=== PATIENT | female | born 1940 | race Caucasian/White ===

== ENCOUNTER 2019-01-19 06:39 | Emergency (ER) | payer MEDICARE, OTHER ==
[~2019-01-19] VITALS: Ht 170.2 cm; Wt 106.6 kg
[~2019-01-19 06:39] MED LIST: CELE100 PO; CYCL10 PO; DIAZ5 PO; DOC250 PO; IBUP400 PO; LISHYD2012 PO; NITR100 PO; OXYACE5T PO
[2019-01-19] MEDS ORDERED: Coumadin2 MG (07:27)
[2019-01-19 08:08] LABS: BASOPHILS ABSOLUTE AUTO 0.03 K/mm3 (0.00-0.23); BASOPHILS PERCENT AUTO 0 % (0-2); EOSINOPHILS ABSOLUTE AUTO 0.29 K/mm3 (0.00-0.68); EOSINOPHILS PERCENT AUTO 3 % (0-6); Hematocrit 40.7 % (33.0-51.0); IMMATURE GRAN ABSOLUTE AUTO 0.02 K/mm3 (0.00-0.10); IMMATURE GRAN PERCENT AUTO 0 % (0-1); LYMPHOCYTES ABSOLUTE AUTO 1.97 K/mm3 (0.84-5.20); LYMPHOCYTES PERCENT AUTO 22 % (21-46); MONOCYTES ABSOLUTE AUTO 0.85 K/mm3 (0.16-1.47); MONOCYTES PERCENT AUTO 9 % (4-13); Mean Corpuscular HGB Conc 31.9 g/dL (31.5-36.5); Mean Corpuscular Volume 94 fL (80-100); NEUTROPHILS ABSOLUTE AUTO 5.85 K/mm3 (1.96-9.15); NEUTROPHILS PERCENT AUTO 65 % (41-73); Platelet Count 181 K/mm3 (150-400); RDW Standard Deviation 52.3 fL (35.1-46.3); Red Blood Cell Count 4.34 M/mm3 (3.80-5.20); White Blood Cell Count 9.01 K/mm3 (4.00-11.30)
[2019-01-19 08:23] LABS: International Normalized Ratio 1.97; Prothrombin Time Results 19.6 Sec (9.7-11.5)
[2019-01-19 08:32] LABS: Anion Gap 6 mmol/L (6-16); Blood Urea Nitrogen 27 mg/dL (8-24); Bun/Creatinine Ratio 30.9 (12.0-20.0); CO2, Blood 28 mmol/L (21-32); Calcium, Blood 9.1 mg/dL (8.5-10.1); Chloride, Blood 107 mmol/L (98-108); Creatinine, Blood 0.88 mg/dL (0.40-1.00); Glomerular Filtration Rate >60 (60-); Glucose, Blood 120 mg/dL (70-99); Potassium, Blood 3.4 mmol/L (3.5-5.5); Sodium, Blood 141 mmol/L (136-145)
[2019-01-19] MEDS ORDERED: Ultram50 MG PO (10:03)
== END 2019-01-19 11:32 | disposition home or self-care (01) ==
LOC: ER 06:39
PROVIDERS: Emergency Medicine
DX: S00.03XA Contusion of scalp, initial encounter (principal); S40.022A Contusion of left upper arm, initial encounter; S40.011A Contusion of right shoulder, initial encounter; Z88.0 Allergy status to penicillin; Z88.8 Allergy status to other drugs, medicaments and biological substances; Z79.01 Long term (current) use of anticoagulants; Z79.1 Long term (current) use of non-steroidal anti-inflammatories (NSAID); W01.198A Fall on same level from slipping, tripping and stumbling with subsequent striking against other object, initial encounter
CPT/HCPCS: 36415; 70450; 73030; 80048; 85025; 85610; 99285-25

== ENCOUNTER 2022-03-10 15:20 | Inpatient (IN) | payer MEDICARE, OTHER ==
[~2022-03-10] VITALS: Ht 160 cm; Wt 57.6 kg
[~2022-03-10 15:20] MED LIST changes: +Coumadin2 MG; +NITR100CA PO; +Ultram50 MG PO
[2022-03-10 16:36] LABS: BASOPHILS ABSOLUTE AUTO 0.01 K/mm3 (0.00-0.23); BASOPHILS PERCENT AUTO 0 % (0-2); EOSINOPHILS ABSOLUTE AUTO 0.07 K/mm3 (0.00-0.68); EOSINOPHILS PERCENT AUTO 1 % (0-6); Hematocrit 42.4 % (33.0-51.0); Hemoglobin 13.6 g/dL (11.5-16.0); IMMATURE GRAN ABSOLUTE AUTO 0.09 K/mm3 (0.00-0.10); IMMATURE GRAN PERCENT AUTO 1 % (0-1); LYMPHOCYTES ABSOLUTE AUTO 1.47 K/mm3 (0.84-5.20); LYMPHOCYTES PERCENT AUTO 10 % (21-46); MONOCYTES ABSOLUTE AUTO 0.47 K/mm3 (0.16-1.47); MONOCYTES PERCENT AUTO 3 % (4-13); Mean Corpuscular HGB 28.5 pg (26.0-34.0); Mean Corpuscular HGB Conc 32.1 g/dL (31.5-36.5); Mean Corpuscular Volume 89 fL (80-100); Mean Platelet Volume 9.9 fL (9.1-12.4); NEUTROPHILS ABSOLUTE AUTO 12.75 K/mm3 (1.96-9.15); NEUTROPHILS PERCENT AUTO 86 % (41-73); Platelet Count 182 K/mm3 (150-400); RDW Coefficient Variation 17.6 % (11.7-14.2); RDW Standard Deviation 57.6 fL (35.1-46.3); Red Blood Cell Count 4.77 M/mm3 (3.80-5.20); White Blood Cell Count 14.86 K/mm3 (4.00-11.30)
[2022-03-10 16:48] LABS: International Normalized Ratio 0.98; Prothrombin Time Results 10.3 Sec (9.7-11.5)
[2022-03-10 17:09] LABS: Influenza A, PCR NEGATIVE (NEGATIVE); Influenza B, PCR NEGATIVE (NEGATIVE); Resp Syncytial Virus, PCR NEGATIVE (NEGATIVE); SARS-Cov-2 (COVID-19) PCR, MMC NEGATIVE (NEGATIVE)
[2022-03-10 17:15] LABS: Albumin, Blood 2.7 g/dL (3.4-5.0); Albumin/Globulin Ratio 0.6 (0.8-1.8); Bilirubin, Total 0.4 mg/dL (0.1-1.0); Bun/Creatinine Ratio 89.9 (12.0-20.0); Creatinine, Blood 2.27 mg/dL (0.40-1.00); Globulin, Blood 4.6 g/dL (2.2-4.0); Potassium, Blood 5.9 mmol/L (3.5-5.5); Total Protein, Blood 7.3 g/dL (6.4-8.2)
[2022-03-10 17:37] LABS: Source, Urine Foley catheter
[2022-03-10 17:39] LABS: Creatine Kinase MB 43.1 ng/mL (0.0-3.6); Creatine Kinase MB Index 3.6 (0.0-4.0)
[2022-03-10 17:46] LABS: Appearance, Urine Cloudy (Clear); Bilirubin, Urine Neg (Neg); Blood, Urine 5+ (Neg); Color, Urine Yellow (P-Yellow); Glucose Qualitative, Urine Neg (Neg); Ketones, Urine Neg (Neg); Leukocyte Esterase, Urine 3+ (Neg); Nitrite, Urine Neg (Neg); Protein, Urine 3+ (Neg); Urobilinogen, Urine NORM (Normal)
[2022-03-10 18:06] LABS: Bacteria Many /hpf; Squamous Epithelial Cells Rare /hpf (Few); White Blood Cells, Urine 50-100 /hpf (0-5)
[2022-03-10 18:07] LABS: Transitional Epithelial Cells Few /hpf (0-Rare)
[2022-03-10 18:41] LABS: Bicarbonate Venous 16.3 mmol/L (24.0-30.0); PCO2 Venous 26.8 mmHg (38-42); pH Blood Venous 7.33 (7.34-7.37)
--- NOTE | 2022-03-10 22:30 | NUR ---
PT ADMITTED TO ROOM ICU 3 UNDER ICU STATUS. PT ARRIVES TO ROOM AT 2155 FROM ED. SLIDE TRANSFERRED TO BED FROM [facility]. PT MOANS OUT WITH ANY CONTACT AND DOES CRY WHEN MOVED. NOTED MULTIPLE SKIN WOUNDS THROUGHOUT PT'S BODY. WOUND PICTURES TAKEN. MEPILEX DRESSING "CLOVER" PLACED TO GLUTEAL WOUND. MULTIPLE PILLOWS UTILIZED TO PROTECT PT'S SKIN INTEGRITY. LEVOPHED INFUSING AT 3MCG'S TO MAINTAIN MAP > 60. WILL REVIEW CHART, ORDERS, AND PLAN OF CARE FOR THIS PT.
[2022-03-11 00:30] LABS: Bun/Creatinine Ratio 97.1 (12.0-20.0); Calcium, Blood 9.4 mg/dL (8.5-10.1); Creatinine, Blood 1.71 mg/dL (0.40-1.00); Potassium, Blood 4.4 mmol/L (3.5-5.5)
[2022-03-11] MEDS ORDERED: HYDCHL50 PO (03:20)
[2022-03-11] MEDS ORDERED: KLOR-CON 1010 ME8 PO (03:21)
[2022-03-11] MEDS ORDERED: Prinivil10 MG PO (03:22)
[2022-03-11 04:56] LABS: BASOPHILS ABSOLUTE AUTO 0.01 K/mm3 (0.00-0.23); BASOPHILS PERCENT AUTO 0 % (0-2); EOSINOPHILS ABSOLUTE AUTO 0.05 K/mm3 (0.00-0.68); EOSINOPHILS PERCENT AUTO 0 % (0-6); Hematocrit 33.7 % (33.0-51.0); Hemoglobin 10.8 g/dL (11.5-16.0); IMMATURE GRAN ABSOLUTE AUTO 0.06 K/mm3 (0.00-0.10); IMMATURE GRAN PERCENT AUTO 0 % (0-1); LYMPHOCYTES ABSOLUTE AUTO 0.71 K/mm3 (0.84-5.20); LYMPHOCYTES PERCENT AUTO 5 % (21-46); MONOCYTES ABSOLUTE AUTO 0.62 K/mm3 (0.16-1.47); MONOCYTES PERCENT AUTO 5 % (4-13); Mean Corpuscular HGB 28.7 pg (26.0-34.0); Mean Corpuscular Volume 90 fL (80-100); Mean Platelet Volume 9.7 fL (9.1-12.4); NEUTROPHILS ABSOLUTE AUTO 12.25 K/mm3 (1.96-9.15); NEUTROPHILS PERCENT AUTO 89 % (41-73); Platelet Count 145 K/mm3 (150-400); RDW Coefficient Variation 17.5 % (11.7-14.2); RDW Standard Deviation 57.5 fL (35.1-46.3); Red Blood Cell Count 3.76 M/mm3 (3.80-5.20)
[2022-03-11 05:21] LABS: Albumin/Globulin Ratio 0.6 (0.8-1.8); Bilirubin, Total 0.4 mg/dL (0.1-1.0); Bun/Creatinine Ratio 107.2 (12.0-20.0); Calcium, Blood 9.4 mg/dL (8.5-10.1); Creatinine, Blood 1.53 mg/dL (0.40-1.00); Globulin, Blood 3.5 g/dL (2.2-4.0); Potassium, Blood 4.3 mmol/L (3.5-5.5); Total Protein, Blood 5.5 g/dL (6.4-8.2)
--- NOTE | 2022-03-11 06:06 | NUR ---
PT'S SON COMES TO UNIT THIS MORING. STATES THAT HE HAD BEEN RELEASED FROM BEING A PATIENT FROM THIS HOSPITAL ON 03-10-2022. STATES THAT WHEN HE HAD GOT HOME, HE FOUND HIS MOTHER WITH FECAL AND URINE INCONTINENCE. HAD A SPIKE MACHINE OPERATOR THAT HE KNEW COME BY TO HELP CLEAN HER UP, AND THEN CALLED AMBULANCE TO BRING PT INTO HOSPITAL. PT'S SON STATED THAT HE HAD REQUESTED A FRIEND OF HIS TO HELP TAKE CARE OF HIS MOTHER WHILE HE WAS IN THE HOSPITAL. HE ADMITS THAT HIS FRIEND HAD NOT DONE A GOOD JOB, AND THAT HE DID NOT KNOW HOW TO CARE FOR THE PATIENT. UPDATE GIVE TO THE SON, RADHA ON PLAN OF CARE FOR PT. HE VERBALIZES UNDERSTANDING. HE HAS GONE HOME FOR THE MORNING. PT HAS REMAINED NON-VERBAL THROUGHT NIGHT. DOES OPEN EYES TO HER NAME, AND MOANS OUT WITH TURNS. LEVOPHED HAD BEEN DECREASED TO 2MCG'S, AND SUBSEQUENTLY INCREASED BACK TO 3MCG'S. WILL CONTINUE TO MONITOR PT, AND WILL REPORT OFF TO ONCOMING RN.
--- NOTE | 2022-03-11 06:50 | NUR ---
MEPILEX DRESSINGS PLACE TO WOUNDS. ABD PAD PLACED TO RIGHT AXILLA AREA TO PROTECT ESCORIATED SKIN. HEEL PROTECTORS PLACED BI LAT. PT DOES AWAKEN AND MAKE EYE CONTACT. PT DOES SPEAK SOME. IS ABLE TO STATE SHE PREFERS TO BE CALLED JONI.
--- NOTE | 2022-03-11 08:20 | NUR ---
ASSUMED CARE OF PT, REPORT RCV'D FROM VERONICA MARTIN. PT ALERT TO VERBAL STIMULATION, OPENS EYES, WITHDRAWN BUT NODS HEAD YES/NO, FOLLOWS COMMANDS WEAKLY. LEVOPHED INFUSING AT 3 MCG/MIN AT START OF SHIFT TITRATED DOWN AND PLACED ON STANDBY AT 0745, MAPS REMAIN >65 AT THIS TIME. AFIB WITH RATE 100-120. SATS 97% ON ROOM AIR. 1/2NS BICARB @75 ML/HR. GARCIA PATENT AND DRAINING CLOUDY URINE TO GRAVITY. PT HAS EXTENSIVE WOUNDS (DOCUMENTED IN CHART), WOUND CLEANSED AND COVERED BY NOC NURSE. SEE FULL SHIFT ASSESSMENT.
--- NOTE | 2022-03-11 09:12 | NUR ---
PT AWAKE AND TEARFUL, ASKED PT IF SHE WAS IN PAIN, SHE RESPONDED "A LITTLE". TREATED PER EMAR. PT CRIES OUT IN PAIN WITH REPOSITIONING.
--- NOTE | 2022-03-11 09:38 | NUR ---
ADULT PROTECTIVE SERVICES AT BEDSIDE. PT IS SLEEPY AND ISN'T ANSWERING QUESTIONS AT THIS TIME. APS WORKER REQUESTING COPIES OF PT'S WOUNDS, SPOKE WITH RISK MANAGEMENT WHO WILL BE SAFELY AND SECURELY PROVIDING PT'S INFORMATION TO APS. REVIEWED PTS CASE WITH PROTECTIVE SERVICES AND CASE MANAGEMENT.
--- NOTE | 2022-03-11 11:27 | NUR ---
Attempted to reach pt's son by phone to discuss goals of care, pt's extreme pain and s/s, and code status. Phone number listed for Jose Madrid is disconnected. Attempting to find valid contact # for Jose. T/C to CM to assist if possible.
--- NOTE | 2022-03-11 12:05 | NUR ---
Valid ph # obtained for Jose Madrid from his primary contact [phone]. I spoke to him regarding her current condition and prognosis. He is in support of transitioning to comfort care and a supportive/hospice goal of care.
--- NOTE | 2022-03-11 12:41 | NUR ---
PT CRYING AND NODDING HEAD YES TO PAIN, TREATED WITH 50 MCG OF FENTANYL WITH NO RELIEF. PALLIATIVE CARE SPOKE WITH PT'S SON AND PT TRANSITIONED TO COMFORT CARE.
--- NOTE | 2022-03-11 13:44 | NUR ---
[facility] Care referral received last night on admit for urosepsis, AMNA, Rhabdo, wounds, hypotention, severe pain. EMS reportedly found pt in bed soaked in urine and covered with feces. Her son had been in the hospital in the past week, released yesterday and relief cg was not able to care for pt adequately. APS referral made by hospital/EMS and they are in process of investigating situation. I spent am attempting to reach son. Contact made with friend of son who was able to give me son's correct current #. Son, Jose, spoke at length about his own health issues and recent decline in his mom's ability to be independent at home. Due to dementia, Jose has been her CG in the home for safety with cooking, wandering, etc., for some time now. I saw pt a couple of times so far today. Initial visit, pt crying out with any touch, attempt to reposition or check VS. She is is nonverbal but nods yes, when asked if she is hurting. During second visit, after additional analgesic was given, pt was sleeping and did not rouse to voice or gentle touch. Resp even and unlabored. I did not wake her as she has been painful and wakeful most of the time since admission yesterday anabelle. Son will be in later to visit. Report of my conversation with son given to , RN, CM. VO obtained and entered for comfort care at this time.
--- NOTE | 2022-03-11 14:24 | NUR ---
Spiritual Care Visit. Pt is unresponsive and on comfort care. Prayed over Pt. Hoping to connect with Pts. son when he arrives. Will monitor today through nurse [place].
--- NOTE | 2022-03-11 16:11 | NUR ---
PT'S SON RADHA AT BEDSIDE. SON STATES THAT SINCE HIS MOTHERS FALL IN DECEMBER 2021, SHE HAS BEEN UNABLE TO AMBULATE INDEPENDENTLY. SON STATES THAT HE "SUFFERED A BLOOD CLOT AND INFECTION LEADING TO HIS INABILITY TO ASSIST HIS MOTHER AMBULATING". RADHA STATES THAT HE WAS "ADMITTED TO [facility] LAST WEEK AND WAS DISCHARGED 03/10/22". PTS SON STATES THAT HE "MADE ARRANGEMENTS FOR HIS FRIEND TO CARE FOR HIS MOTHER DURING HIS HOSPITALIZATION". RADHA STATES THAT "UPON DISCHARGE HE FOUND THAT HIS MOTHER HAD DETERIORATED OVER THE LAST WEEK AND DEVELOPED EXTENSIVE BEDSORES". SON STATES THAT HE BELIEVES FRIEND "DIDN'T UNDERSTAND THE EXTENT TO WHICH HIS MOTHER NEEDED ASSISTANCE". RADHA CALLED EMS SOON HE REALIZED THAT HIS MOTHER WAS IN SUCH A BAD STATE. RADHA REPORTS THAT HE HAS "TRIED FOR MONTHS" TO FIND ASSISTED LIVING FOR HIS MOTHER TO HELP BETTER MEET HER NEEDS BUT THAT HE HAS "RUN INTO ROADBLOCKS", RADHA SUPPORTS MOTHER'S TRANSITION TO COMFORT CARE AND WHILE APPROPRIATELY SAD, IT GLAD TO SEE MOTHER IS RESTING COMFORTABLY AND DOESN'T APPEAR TO BE IN PAIN. PASTORAL CARE AT BEDSIDE AT THIS TIME COMFORTING PT'S SON RADHA.
--- NOTE | 2022-03-11 16:48 | NUR ---
Spiritual care Visit. Pt. is comfort care and is not responsive. Pts. son is present and is personally unsettled because he himself was recently discharged from the [facility]. Facilitated a lengthy life review of the Pt. Son became appropriately cathartic on several occassions. The Pt. was not a part of a local place of jewish, but was baptized in [facility] by friends. Listened empathetically and guided the son through the life review a with a calming presence. Son verbalized that pt. had identified herself as an organ donor, but there were no other EOL arrangements made. Prayed over the Pt. and with the son. Continued to establish rapport with son. Son verbalized gratitude for the spiritual care visit.
--- NOTE | 2022-03-11 18:04 | NUR ---
PT'S SON REQUESTED PHYSICAL THERAPIST PUSH HIM IN HIS WHEELCHAIR OUT TO HIS CAR TO RETRIEVE HIS PAIN MEDICATIONS WELL REQUESTED THAT THE PHYSICAL THERAPIST CHANGE HIS SURGICAL BANDAGES. PHYSICAL THERAPIST CONSULTED THIS NURSE TO SPEAK WITH PT'S SON. UPON ENTRANCE INTO THE PT'S ROOM, RADHA WAS ON SPEAKERPHONE WITH FRIEND "CELE" MAKING STATEMENTS THAT THE STAFF WANTED HIM TO "SIT THERE AND " AND WANTED HIS "FOOT TO ROT OFF". FRIEND CELE STATED TO RADHA THAT HE WOULD BE HAPPY TO COME AND GIVE RADHA HIS MEDICATION AND ASSIST HIM TO HIS MOTHER'S ROOM SHE WAS BEING TRANSFERRED TO ROOM 338. RADHA THEN STATED "THAT WON'T EVEN HELP BECAUSE I NEED MY DRESSINGS CHANGED". THIS NURSE TOLD RADHA THAT WE WOULD BE HAPPY TO ASSIST HIM TO HIS MOTHERS NEW ROOM AND THAT WE COULD TAKE HIM TO THE EMERGENCY ROOM SO THAT HE COULD CHECK IN AND BE SEEN BY MEDICAL STAFF REGARDING HIS BANDAGES. PT BECAME BELLIGERANT AND YELLING, SECURITY CALLED AND PT WAS ESCORTED OUT OF ICU AND EVENTUALLY OFF OF [facility].
--- NOTE | 2022-03-12 06:08 | NUR ---
NIGHTSHIFT SUMMARY Patient resting comfortably all shift, arouses when repositioning, crying out. Repositioned Q2H, medicated once with Roxinal for pain. PRN effective for comfort. Open wounds noted on coccyx, hip, back, arm. Scant seropurulent drainage noted. Mepilex dressing applied. Patient on comfort care, will continue to monitor and provide interventions for pain control & skin protection as needed.
--- NOTE | 2022-03-12 08:00 | NUR ---
pt laying on her side, mouth breathing with a slight pause between breaths, nonresponsive, no s/s of distress, call light in reach.
--- NOTE | 2022-03-12 10:04 | NUR ---
Comfort care visit. Pt appears MUCH more comfortable than yesterday. She is not requiring freq analgesic dosing to manage symptoms since yesterday anabelle. Resp 6-10/min with pauses. Noisy respirations with pt turned onto right side. No urine output noted in drainage bag. Spoke with RN after my visit. Plan daily visits and will ask Volunteer to visit Zelda later today. No family at bedside. Unsure if son will be allowed back to visit due to behaviours yesterday that required security assistance.
--- NOTE | 2022-03-12 11:49 | NUR ---
pt turned and new bedding placed under her, new mepilex placed to left buttocks/hip area, floated extremities. call light in reach.
--- NOTE | 2022-03-12 16:32 | NUR ---
pt has been turned q2hrs, moans a bit when turned, then returns to sleep, resp are shallow, no changes in condition. call light in reach.
--- NOTE | 2022-03-12 18:03 | NUR ---
SHIFT SUMMARY PT RESTING QUIETLY SINCE THIS RN ASSUMED CARE AT 1700. NO SIGNS OF PAIN/DISCOMFORT OR SHORTNESS OF BREATH AT THIS TIME. CALL LIGHT IN REACH. WILL CONTINUE TO MONITOR FOR COMFORT AND REPORT TO ONCOMING RN.
--- NOTE | 2022-03-12 22:43 | NUR ---
1956 PT LYING IN BED, EYES CLOSED, OCCASIONAL AGONAL BREATHING, OTHERWISE NORMAL BREATHING WITH NO SIGNS OF SOB. NO GRIMACING, GAURDING OR MOANING, NO APPARENT SIGNS OF DISTRESS OTHERWISE. CALL LIGHT IS IN REACH.
--- NOTE | 2022-03-12 22:45 | NUR ---
PT LYING IN BED, EYES CLOSED, BREATHING IS EVEN, NO SOB BUT OCCASIONAL BREATHING CHANGES TO AGONAL BREATHING. ON RA. NO GRIMACING, GUARDING, OR MOANING. NO OTHER APPARENT SIGNS OF DISTRESS. CALL LIGHT IS IN REACH.
--- NOTE | 2022-03-13 02:14 | NUR ---
0000 PT LYING IN BED, EYES CLOSED, APPEARS TO BE RESTING. BREATHING IS EVEN, UNLABORED WITH OCCASIONAL AGONAL BREATHING. NO GRIMACING, GUARDING, OR MOANING. NO OTHER APPARENT SIGNS OF DISTRESS. CALL LIGHT IS IN REACH.
--- NOTE | 2022-03-13 02:15 | NUR ---
0200 PT LYING IN BED, EYES CLOSED, APPEARS TO BE RESTING. BREATHING IS EVEN, UNLABORED WITH OCCASIONAL AGONAL BREATHING. NO GRIMACING, GUARDING OR MOANING. NO OTHER APPARENT SIGNS OF DISTRESS. CALL LIGHT IS IN REACH.
--- NOTE | 2022-03-13 04:59 | NUR ---
TURNED AND REPOSITIONED PT. PT IS LYING IN BED, EYES CLOSED, APPEARS TO BE RESTING. BREATHING IS EVEN, UNLABORED WITH OCCASION AGONAL BREATHING. NO GRIMACING, GAURDING, MOANIN. OTHER APPARENT SIGNS OF DISTRESS. CALL LIGHT IS IN REACH.
--- NOTE | 2022-03-13 05:01 | NUR ---
PT IS UNRESPONSIVE, BREATHING IS MOSTLY EVEN AND UNLABORED WITH OCCASIONAL AGONAL BREATHING. NO GRIMACING, GAURDING OR MOANING. NO SIGNS PT WAS HAVING PAIN OR DISCOMFORT. GARCIA WITH NOW TEA COLORED URINE.
--- NOTE | 2022-03-13 05:24 | NUR ---
PT LYING IN BED, EYES CLOSED, APPEARS TO BE RESTING. BREATHING IS EVEN, UNLABORED WITH OCCASIONAL AGONAL BREATHING. NO GRIMACING, GAURDING OR MOANING. NO OTHER APPARENT SIGNS OF DISTRESS. CALL LIGHT IS IN REACH. NO OTHER CHANGES THIS SHIFT.
--- NOTE | 2022-03-13 11:00 | NUR ---
Pt unresponsive. Resp 8/min and sl labored. Apnic pauses noted as before. No visitors at bedside. Pt appears very comfortable at this time and progressing in the dying process. Plan daily Pal Care visits for s/s management and support.
--- NOTE | 2022-03-13 11:24 | NUR ---
assumed care of pt, she appears comfortable, no s/s of discomfort, nonresponsive, pausing between breathing, cabezas cath draining scant amount of yellow urine, multiple wounds with mepilex in place, continue to turn Q2, and monitor for pain, call light in reach.
--- NOTE | 2022-03-13 12:07 | NUR ---
turned pt to other side, floated with pillows, music playing. no respons from pt when moving. call light in reach.
--- NOTE | 2022-03-13 18:18 | NUR ---
pt has been turned Q2 hrs, pausing between resp, no really responding with turning, floated with pillows, call light in reach.
--- NOTE | 2022-03-14 04:43 | NUR ---
NIGHTSHIFT SUMMARY Patient resting comfortably all shift, uncommunicative. Repostioned Q2H. 0457, patient unresponsive, no pulses noted, no respirations/heartbeat hear on ausculatation, 2x poultry dressing worker. Notified MD that patient .
--- NOTE | 2022-03-14 05:18 | NUR ---
CALLED PT'S SON RADHA LE AT [phone], NO ANSWER. LEFT MESSAGE WITH A PHONE NUMBER TO PLEASE RETURN THE CALL.
== END 2022-03-14 04:57 | DRG 871 ==
LOC: ER 15:20 → MEDS 19:16 → ICUW 19:16 → ICUE 21:36 → MEDS 03-11 18:04
PROVIDERS: Physician Assistant; ADMIT Internal Medicine
PROC: 3E03329 Introduction of Other Anti-infective into Peripheral Vein, Percutaneous Approach (ICD-10-PCS; principal; 2022-03-10)
PROC: 3E033XZ Introduction of Vasopressor into Peripheral Vein, Percutaneous Approach (ICD-10-PCS; 2022-03-10)
PROC: 0T9B70Z Drainage of Bladder with Drainage Device, Via Natural or Artificial Opening (ICD-10-PCS; 2022-03-11)
DX: A41.4 Sepsis due to anaerobes (principal); G92.8 Other toxic encephalopathy; L89.313 Pressure ulcer of right buttock, stage 3; R65.21 Severe sepsis with septic shock; N17.9 Acute kidney failure, unspecified; M62.82 Rhabdomyolysis; N39.0 Urinary tract infection, site not specified; L03.312 Cellulitis of back [any part except buttock and flank]; E87.0 Hyperosmolality and hypernatremia; R64 Cachexia; Z68.1 Body mass index [BMI] 19.9 or less, adult; E87.5 Hyperkalemia; Z51.5 Encounter for palliative care; Z20.822 Contact with and (suspected) exposure to COVID-19; Z66 Do not resuscitate; D69.6 Thrombocytopenia, unspecified; D64.9 Anemia, unspecified; T68.XXXA Hypothermia, initial encounter; M19.90 Unspecified osteoarthritis, unspecified site; F03.90 Unspecified dementia, unspecified severity, without behavioral disturbance, psychotic disturbance, mood disturbance, and anxiety; B96.4 Proteus (mirabilis) (morganii) as the cause of diseases classified elsewhere; L89.629 Pressure ulcer of left heel, unspecified stage; L89.619 Pressure ulcer of right heel, unspecified stage; A41.51 Sepsis due to Escherichia coli [E. coli]; E83.52 Hypercalcemia; E79.0 Hyperuricemia without signs of inflammatory arthritis and tophaceous disease; E86.0 Dehydration; Z87.440 Personal history of urinary (tract) infections; Z98.890 Other specified postprocedural states; Z88.0 Allergy status to penicillin; Z88.8 Allergy status to other drugs, medicaments and biological substances; Z79.01 Long term (current) use of anticoagulants; Z79.899 Other long term (current) drug therapy; X58.XXXA Exposure to other specified factors, initial encounter; Z74.01 Bed confinement status; Z74.2 Need for assistance at home and no other household member able to render care
CPT/HCPCS: 0241U; 36415; 51702; 70450; 71045; 72192; 80048; 80053; 81001; 82550; 82553; 82803; 83605; 83735; 83880; 84100; 84550; 85025; 85610; 87040; 87077; 87086; 87186; 93005; 93010; 94644; 94664; 96361-59; 96365-59; 96375-59; 99291-25; A9270; J0282; J0610; J0696; J1815; J2060; J3010; J7030; J7050; J7060; J7120